=== PATIENT | male | born 1965 | race Caucasian/White ===

== ENCOUNTER → 2016-05-24 | Outpatient (REF) | payer OTHER ==
[2016-05-24 17:41] LABS: ANION GAP 4 MEQ/L (8-16); BLOOD UREA NITROGEN 16 MG/DL (7-18); CALCIUM LEVEL 9.4 MG/DL (8.5-10.1); CARBON DIOXIDE LEVEL 30 MEQ/L (21-32); CHLORIDE LEVEL 106 MEQ/L (98-107); CHOLESTEROL LEVEL 255 MG/DL (<200); CREATININE FOR GFR 1.03 MG/DL (0.70-1.30); GLOMERULAR FILTRATION RATE > 60.0 (>60); GLUCOSE, FASTING 94 MG/DL (70-105); POTASSIUM SERUM 4.7 MEQ/L (3.5-5.1); SODIUM LEVEL 140 MEQ/L (136-145); TRIGLYCERIDES LEVEL 83 MG/DL (<150)
[2016-05-24 18:04] LABS: BASO % 0.3 % (0.0-1.0); EOS # 0.1 K/mm3 (0.0-0.50); EOS % 1.7 % (0.0-3.0); LARGE UNSTAINED CELL # 0.1 K/mm3 (0.0-0.4); LARGE UNSTAINED CELL % 1.6 % (0.0-4.0); LYMPH # 1.2 K/mm3 (1.5-4.5); MEAN CORPUSCULAR HEMOGLOBIN 29.9 pg (27.0-33.0); MEAN CORPUSCULAR HGB CONC 34.2 g/dl (32.0-36.5); MEAN CORPUSCULAR VOLUME 87.6 fl (80.0-96.0); MONO # 0.2 K/mm3 (0.0-0.8); MONO % 4.8 % (0.0-5.0); NEUTROPHILS # 2.5 K/mm3 (1.8-7.7); NEUTROPHILS % 62.5 % (36.0-66.0); PLATELET COUNT, AUTOMATED 231 k/mm3 (150-450); RED CELL DISTRIBUTION WIDTH 12.3 % (11.5-14.5)
== END ==
LOC: M LAB REF 16:27
PROVIDERS: ATTEND Family Medicine
DX: I10 Essential (primary) hypertension (principal)

== ENCOUNTER → 2020-09-28 | Outpatient (CLI) | payer BC ==
--- NOTE | 2020-09-29 13:05 | REPVR ---
PROCEDURE INFORMATION: Exam: MR Cervical Spine Without Contrast Exam date and time: 09/28/2020 11:59 AM Age: 55 years old Clinical indication: Neck pain; Additional info: Cervical radiculopathy TECHNIQUE: Imaging protocol: Multiplanar magnetic resonance images of the cervical spine without contrast. COMPARISON: No relevant prior studies available. FINDINGS: Vertebrae: Unremarkable. Spinal cord: Normal signal. No cord compression. C2-C3: There is disc desiccation. There is a moderate disc/osteophyte complex, partial toward the right. C3-C4: There is disc desiccation. There is a moderate disc/osteophyte complex, partial toward the right, that flattens the ventral thecal sac and compromises the right neural foramen. There is a small right subarticular disc protrusion. There is bilateral uncovertebral joint arthropathy, worse on the right. There is moderate right-sided neuroforaminal narrowing. C4-C5: There is disc desiccation. There is mild ventral ridging which flattens the ventral thecal sac. There is moderate bilateral uncovertebral joint arthropathy. C5-C6: There is disc desiccation. There is a moderate disc/osteophyte complex that flattens the ventral thecal sac. There is moderate bilateral uncovertebral joint arthropathy. There is mild bilateral neuroforaminal narrowing. There is mild spinal canal stenosis. C6-C7: There is disc space narrowing and desiccation. There are moderate degenerative end plate changes at this level. There is a moderate disc/osteophyte complex, partial toward the left, that flattens the ventral thecal sac and compromises the left neural foramen. There is a small left subarticular disc protrusion. There is mild/moderate bilateral neuroforaminal narrowing, left worse than right. There is mild spinal canal stenosis. C7-T1: There is disc space narrowing and desiccation. There are moderate degenerative end plate changes at this level. There is a moderate disc/osteophyte complex that flattens the ventral thecal sac. There is moderate bilateral uncovertebral joint arthropathy. There is mild bilateral neuroforaminal narrowing. Soft tissues: Unremarkable. IMPRESSION: Moderate multilevel degenerative changes causing varying degrees of spinal canal and neuroforaminal narrowing. Electronically signed by: Merrill Spivey On 09/29/2020 13:05:07 PM
== END ==
LOC: M PLAIMG 10:51
PROVIDERS: ATTEND Physician Assistant
DX: M54.2 Cervicalgia (principal); R51.9 Headache, unspecified

== ENCOUNTER 2021-06-11 13:33 | Emergency (ER) | payer BC ==
[~2021-06-11] VITALS: Ht 182.9 cm; Wt 90.0 kg
[2021-06-11 14:43] LABS: BASO % 0.6 % (0.0-1.0); EOS # 0.1 10^3/uL (0.0-0.5); EOS % 1.9 % (0.0-3.0); HEMATOCRIT 47.4 % (42.0-52.0); HEMOGLOBIN 15.8 g/dl (13.5-17.5); LYMPH # 1.4 10^3/uL (1.5-5.0); LYMPH % 30.1 % (24.0-44.0); MEAN CORPUSCULAR HEMOGLOBIN 29.1 pg (27.0-33.0); MEAN CORPUSCULAR HGB CONC 33.3 g/dl (32.0-36.5); MEAN CORPUSCULAR VOLUME 87.3 fl (80.0-96.0); MONO # 0.4 10^3/uL (0.0-0.8); MONO % 8.6 % (2.0-8.0); NEUTROPHILS # 2.7 10^3/uL (1.5-8.5); NEUTROPHILS % 58.6 % (36.0-66.0); PLATELET COUNT, AUTOMATED 214 10^3/uL (150-450); RED BLOOD COUNT 5.43 10^6/uL (4.30-6.10); WHITE BLOOD COUNT 4.7 10^3/uL (4.0-10.0)
[2021-06-11 14:53] LABS: INR 0.96; PROTHROMBIN TIME 13.2 SECONDS (12.7-14.5)
[2021-06-11 14:54] LABS: PARTIAL THROMBOPLASTIN TIME 27.6 SECONDS (25.9-37.0)
[2021-06-11 15:02] LABS: ALBUMIN 4.2 GM/DL (3.2-5.2); ALT/SGPT 31 U/L (12-78); BILIRUBIN,DIRECT 0.1 MG/DL (0.0-0.2); BILIRUBIN,TOTAL 0.5 MG/DL (0.2-1.0); BLOOD UREA NITROGEN 12 MG/DL (7-18); CALCIUM LEVEL 9.1 MG/DL (8.5-10.1); CARBON DIOXIDE LEVEL 32 MEQ/L (21-32); CHLORIDE LEVEL 105 MEQ/L (98-107); CREATININE FOR GFR 1.02 MG/DL (0.70-1.30); GLOMERULAR FILTRATION RATE > 60.0 (>56); GLUCOSE, FASTING 87 MG/DL (70-100); NT-PRO BNP 231 PG/ML (<125); POTASSIUM SERUM 3.9 MEQ/L (3.5-5.1); SODIUM LEVEL 140 MEQ/L (136-145); TOTAL PROTEIN 6.9 GM/DL (6.4-8.2)
[2021-06-11 15:03] LABS: CK-MB VALUE MASS 3.7 NG/ML (<3.6); MB/CK RELATIVE INDEX 1.54 (< OR =4)
[2021-06-11] MEDS ORDERED: HEPARIN DRIP 25,000 UNITS in IV 1 EA IV SCH (15:25)
[2021-06-11] MEDS ORDERED: ASPIRIN 81 MG CHEW TABLET PO ONE (15:25)
[2021-06-11] MEDS ORDERED: HEPARIN SOD (PORCINE) 5000UNITS/ML 1ML VIAL/SYRINGE IV ONE (15:25)
[2021-06-11] MEDS ORDERED: NITROGLYCERIN/D5W 100MCG/ML 25 MG in IV 1 EA IV SCH (15:35)
[2021-06-11 15:52] LABS: CK-MB VALUE MASS 4.9 NG/ML (<3.6); MB/CK RELATIVE INDEX 2.33 (< OR =4)
[2021-06-11 16:17] LABS: RSV AMPLIFICATION NEGATIVE (NEGATIVE)
[2021-06-11 17:20] VITALS: BP 133/83
== END 2021-06-11 17:25 | disposition short-term general hospital (02) ==
LOC: M ED 13:33
DX: I21.4 Non-ST elevation (NSTEMI) myocardial infarction (principal); R00.1 Bradycardia, unspecified; M54.9 Dorsalgia, unspecified
CPT/HCPCS: 71045; 80048; 80076; 82550; 82553; 83880; 84443; 85025; 85610; 85730; 87631; 93005; 93041; 94760; 96365; 96366; 96375; 99285; J1644

== ENCOUNTER 2021-06-15 11:39 | Emergency (ER) | payer BC ==
[~2021-06-15] VITALS: Ht 182.9 cm; Wt 90.0 kg
[2021-06-15] MEDS ORDERED: METO1TAB32 (11:46)
[2021-06-15] MEDS ORDERED: ASPI81CH33 (11:46)
[2021-06-15] MEDS ORDERED: NITR0.4S14 (11:46)
[2021-06-15] MEDS ORDERED: CLOP75TA2 (11:46)
[2021-06-15] MEDS ORDERED: ATOR80TA59 (11:46)
[2021-06-15] MEDS ORDERED: ISOVUE-370 76% 100ML VIAL As Ordered ONE (12:12)
[2021-06-15 12:32] LABS: BASO % 0.4 % (0.0-1.0); EOS # 0.1 10^3/uL (0.0-0.5); EOS % 1.3 % (0.0-3.0); HEMATOCRIT 43.5 % (42.0-52.0); HEMOGLOBIN 14.4 g/dl (13.5-17.5); LYMPH # 1.1 10^3/uL (1.5-5.0); LYMPH % 16.3 % (24.0-44.0); MEAN CORPUSCULAR HEMOGLOBIN 29.4 pg (27.0-33.0); MEAN CORPUSCULAR HGB CONC 33.1 g/dl (32.0-36.5); MONO # 0.4 10^3/uL (0.0-0.8); NEUTROPHILS # 5.2 10^3/uL (1.5-8.5); NEUTROPHILS % 75.7 % (36.0-66.0); PLATELET COUNT, AUTOMATED 195 10^3/uL (150-450); RED BLOOD COUNT 4.89 10^6/uL (4.30-6.10); WHITE BLOOD COUNT 6.9 10^3/uL (4.0-10.0)
[2021-06-15 12:55] LABS: ALBUMIN 3.7 GM/DL (3.2-5.2); ALT/SGPT 50 U/L (12-78); BILIRUBIN,DIRECT < 0.1 MG/DL (0.0-0.2); BILIRUBIN,TOTAL 0.3 MG/DL (0.2-1.0); LIPASE 117 U/L (73-393); TOTAL PROTEIN 6.2 GM/DL (6.4-8.2)
[2021-06-15] MEDS: fentaNYL 100 MCG/2 ML INJECTION IV PRN ×2 (14:08→16:10)
[2021-06-15] MEDS ORDERED: FLOM0.4C39 PO (16:43)
[2021-06-15] MEDS ORDERED: ONDA4TAB6 PO (16:43)
[2021-06-15] MEDS ORDERED: PERC5TAB12 PO (16:43)
[2021-06-15 17:25] VITALS: BP 122/68
== END 2021-06-15 17:29 | disposition home or self-care (01) ==
LOC: M ED 11:39
DX: N20.1 Calculus of ureter (principal); R11.2 Nausea with vomiting, unspecified; R91.1 Solitary pulmonary nodule; Z86.79 Personal history of other diseases of the circulatory system; Z79.82 Long term (current) use of aspirin; Z79.899 Other long term (current) drug therapy
CPT/HCPCS: 71045; 74177; 80047; 80076; 81001; 83605; 83690; 85025; 93041; 96374; 99284; J3010; Q9967

== ENCOUNTER → 2021-08-16 | Outpatient (CLI) | payer BC ==
[~2021-08-16] MED LIST: ASPI81CH33; ATOR80TA59; CLOP75TA2; FLOM0.4C39 PO; METO1TAB32; NITR0.4S14; ONDA4TAB6 PO; PERC5TAB12 PO
== END ==
LOC: M PAIN 13:30
PROVIDERS: ATTEND Nurse Practitioner Family
DX: M79.18 Myalgia, other site (principal); M54.2 Cervicalgia; I10 Essential (primary) hypertension; E78.00 Pure hypercholesterolemia, unspecified; I25.2 Old myocardial infarction; Z87.442 Personal history of urinary calculi; Z79.82 Long term (current) use of aspirin; Z79.899 Other long term (current) drug therapy; Z79.02 Long term (current) use of antithrombotics/antiplatelets

== ENCOUNTER → 2021-09-06 | Outpatient (CLI) | payer BC | LOC: M PLAIMG 08:22 | PROVIDERS: ATTEND Internal Medicine Pulmonary Disease | DX: R91.8 Other nonspecific abnormal finding of lung field (principal) ==

== ENCOUNTER → 2022-03-17 | Outpatient (CLI) | payer BC | LOC: M RAD 07:12 | PROVIDERS: ATTEND Internal Medicine Pulmonary Disease | DX: R91.8 Other nonspecific abnormal finding of lung field (principal); I70.0 Atherosclerosis of aorta; I25.84 Coronary atherosclerosis due to calcified coronary lesion ==

== ENCOUNTER → 2023-04-13 | Outpatient (CLI) | payer BC | LOC: M PLAIMG 07:45 | PROVIDERS: ATTEND Internal Medicine Pulmonary Disease | DX: R91.8 Other nonspecific abnormal finding of lung field (principal); I25.10 Atherosclerotic heart disease of native coronary artery without angina pectoris ==

== ENCOUNTER 2023-11-12 08:45 | Emergency (ER) | payer BC ==
[~2023-11-12] VITALS: Ht 182.9 cm; Wt 91.9 kg
[~2023-11-12 08:45] MED LIST changes: +ONDA-282 PO; -ONDA4TAB6 PO
[2023-11-12 09:26] LABS: BASO % 0.6 % (0.0-1.0); EOS # 0.1 10^3/uL (0.0-0.5); EOS % 2.4 % (0.0-3.0); HEMATOCRIT 46.9 % (42.0-52.0); HEMOGLOBIN 15.7 g/dl (13.5-17.5); LYMPH # 1.5 10^3/uL (1.5-5.0); LYMPH % 31.4 % (24.0-44.0); MEAN CORPUSCULAR HEMOGLOBIN 30.2 pg (27.0-33.0); MEAN CORPUSCULAR HGB CONC 33.5 g/dl (32.0-36.5); MEAN CORPUSCULAR VOLUME 90.2 fl (80.0-96.0); MONO # 0.4 10^3/uL (0.0-0.8); MONO % 7.7 % (2.0-8.0); NEUTROPHILS # 2.7 10^3/uL (1.5-8.5); NEUTROPHILS % 57.7 % (36.0-66.0); PLATELET COUNT, AUTOMATED 197 10^3/uL (150-450); WHITE BLOOD COUNT 4.7 10^3/uL (4.0-10.0)
[2023-11-12 09:38] LABS: INR 1.01
[2023-11-12] MEDS ORDERED: ISOVUE-370 76% 100ML VIAL As Ordered ONE (09:45)
[2023-11-12 09:51] LABS: LIPASE 31 U/L (12-53)
[2023-11-12 09:53] LABS: ALBUMIN 4.2 G/DL (3.2-5.2); ALKALINE PHOSPHATASE 109 U/L (46-116); ALT/SGPT 31 U/L (7.0-40); AST/SGOT 25 U/L (<34); BILIRUBIN,DIRECT 0.2 MG/DL (<0.4); BILIRUBIN,TOTAL 0.5 MG/DL (0.3-1.2); BLOOD UREA NITROGEN 16 MG/DL (9-23); CALCIUM LEVEL 9.3 MG/DL (8.5-10.1); CARBON DIOXIDE LEVEL 30 MMOL/L (20-31); CHLORIDE LEVEL 106 MMOL/L (98-107); CK-MB VALUE MASS < 1.0 NG/ML (<3.6); CREATININE FOR GFR 0.94 MG/DL (0.70-1.30); GLOMERULAR FILTRATION RATE > 60.0 (>56); GLUCOSE, FASTING 102 MG/DL (60-100); POTASSIUM SERUM 3.9 MMOL/L (3.5-5.1); SODIUM LEVEL 139 MMOL/L (136-145)
[2023-11-12 09:54] LABS: THYROID STIMULATING HORMONE 1.682 uIU/ML (0.55-4.78)
[2023-11-12 09:55] LABS: FREE T4 1.02 NG/DL (0.89-1.76)
[2023-11-12 09:58] LABS: CPK CREATINE PHOSPHOKINASE 196 U/L (46-171); MB/CK RELATIVE INDEX 0.51 (< OR =4)
[2023-11-12 11:06] LABS: CK-MB VALUE MASS < 1.0 NG/ML (<3.6)
[2023-11-12 11:08] LABS: CPK CREATINE PHOSPHOKINASE 141 U/L (46-171)
[2023-11-12 11:45] VITALS: O2SAT 96
[2023-11-12 11:46] VITALS: BP 141/88; TEMP 98
== END 2023-11-12 11:39 | disposition home or self-care (01) ==
LOC: M ED 08:45
DX: R91.1 Solitary pulmonary nodule (principal); E04.1 Nontoxic single thyroid nodule; M54.2 Cervicalgia; R68.84 Jaw pain; M79.602 Pain in left arm; R00.1 Bradycardia, unspecified; I25.119 Atherosclerotic heart disease of native coronary artery with unspecified angina pectoris; I10 Essential (primary) hypertension; E78.5 Hyperlipidemia, unspecified; Z79.1 Long term (current) use of non-steroidal anti-inflammatories (NSAID); Z79.899 Other long term (current) drug therapy
CPT/HCPCS: 36415; 70450; 70496; 70498; 71045; 71275; 80047; 80048; 80076; 82550; 82553; 83690; 84439; 84443; 84484; 85025; 85610; 93005; 93041; 94760; 99285; Q9967